=== PATIENT | female | born 1985 | race African-American/Black ===

== ENCOUNTER 2017-04-28 21:09 | Emergency (ER) | payer OTHER ==
[~2017-04-28] VITALS: Ht 165.1 cm; Wt 88.0 kg
[~2017-04-28 21:09] MED LIST: METF500T4 PO; PREN-88 PO
[2017-04-29 02:49] LABS: CLARITY URINE CLEAR (CLEAR); COLOR URINE YELLOW (YELLOW); GLUCOSE URINE NEGATIVE (NEGATIVE); KETONES URINE 3+ (NEGATIVE); LEUKOCYTE ESTERASE URINE NEGATIVE (NEGATIVE); NITRITE URINE NEGATIVE (NEGATIVE); OCCULT BLOOD URINE 3+ (NEGATIVE); PH URINE 6.5 (4.5-8.0); PROTEIN URINE TRACE (NEGATIVE); SPECIFIC GRAVITY URINE 1.025 (1.005-1.030)
[2017-04-29 03:43] LABS: PROTHROMBIN TIME 10.7 sec
[2017-04-29 03:49] LABS: BASOPHILS % 0.6 % (0.0-2.0); EOSINOPHILS % 1.8 % (0.0-5.0); HEMATOCRIT. 35.6 % (36.0-48.0); HEMOGLOBIN. 12.4 g/dL (12.0-16.0); LYMPHOCYTES % 34.7 % (20.0-50.0); MEAN CORPUSCULAR HEMOGLOBIN 25.3 pg (28.0-32.0); MEAN CORPUSCULAR VOLUME 72.5 fL (81.0-99.0); MEAN PLATELET VOLUME 8.6 fl (7.4-10.4); MONOCYTES % 6.6 % (2.0-8.0); NEUTROPHILS % 56.3 % (40.0-76.0); PLATELET 291 x1000/uL (130-400); RED BLOOD CELL COUNT 4.91 mill/uL (4.2-5.4); RED CELL DISTRIBUTION WIDTH 14.5 % (11.6-14.6)
[2017-04-29 03:59] LABS: CARBON DIOXIDE 25 mEq/L (21-32); CHLORIDE 105 mEq/L (98-107)
[2017-04-29 04:06] LABS: B-HCG QUANTITATIVE 46507 mIU/mL (<3)
[2017-04-29 06:25] VITALS: BP 103/70
[2017-05-01 19:11] LABS: CHLAMYDIA TRACHOMATIS NAA Negative (Negative); NEISSERIA GONORRHOEAE NAA Negative (Negative)
== END 2017-04-29 07:18 | disposition home or self-care (01) ==
LOC: ER 04-29 02:11
DX: O20.0 Threatened abortion (principal); F12.10 Cannabis abuse, uncomplicated; O99.321 Drug use complicating pregnancy, first trimester; Z88.0 Allergy status to penicillin; Z3A.10 10 weeks gestation of pregnancy
CPT/HCPCS: 36415; 76801; 76817; 80053; 81001; 81025; 83690; 84702; 85025; 85610; 86850; 86900; 86901; 87210; 87491; 87591; 99285; Z7610

== ENCOUNTER 2017-08-21 21:08 | Observation (INO) | payer OTHER ==
[~2017-08-21] VITALS: Ht 165.1 cm; Wt 96.2 kg
[2017-08-21] MEDS ORDERED: NITR-87 PO (21:33)
[2017-08-21] MEDS ORDERED: PANTOPRAZOLE SODIUM 40 MG/VIAL IV NR (22:00)
[2017-08-21] MEDS ORDERED: ONDANSETRON HCL 4MG/2ML VIAL IM NR (22:00)
[2017-08-21 22:54] LABS: CLARITY URINE CLEAR (CLEAR); COLOR URINE YELLOW (YELLOW); GLUCOSE URINE NEGATIVE (NEGATIVE); KETONES URINE 4+ (NEGATIVE); LEUKOCYTE ESTERASE URINE NEGATIVE (NEGATIVE); NITRITE URINE NEGATIVE (NEGATIVE); OCCULT BLOOD URINE NEGATIVE (NEGATIVE); PROTEIN URINE TRACE (NEGATIVE); SPECIFIC GRAVITY URINE 1.031 (1.005-1.030)
[2017-08-21] MEDS ORDERED: MVI, ADULT NO.1 10 ML in SODIUM CHLORIDE 0.9% 1,000 ML IV SCH ×2 (23:00)
== END 2017-08-21 23:45 | disposition home or self-care (01) ==
LOC: L&D 21:08
PROVIDERS: ADMIT Specialist; ATTEND Specialist
DX: O26.892 Other specified pregnancy related conditions, second trimester (principal); R10.9 Unspecified abdominal pain; O21.2 Late vomiting of pregnancy; Z3A.26 26 weeks gestation of pregnancy
CPT/HCPCS: 36415; 80051; 81001; 82570; 96372; 96374; 99281; C9113; G0378; J2405; J3490; J7040; 96360; J7030

== ENCOUNTER 2018-10-09 09:00 | Emergency (ER) | payer OTHER ==
[~2018-10-09] VITALS: Ht 162.6 cm; Wt 85.0 kg
[~2018-10-09 09:00] MED LIST changes: -METF500T4 PO; +NITR-87 PO
[2018-10-09] MEDS ORDERED: SODIUM CHLORIDE 0.9% 1,000 ML IV ONE (09:44)
[2018-10-09] MEDS ORDERED: KETOROLAC 30MG/ML VIAL IV STA (09:44)
[2018-10-09] MEDS ORDERED: ENALAPRIL 2.5MG TABLET PO ONE (10:00)
[2018-10-09 10:17] LABS: EOSINOPHILS % 2.4 % (0.0-5.0); HEMATOCRIT. 37.4 % (36.0-48.0); HEMOGLOBIN. 12.3 g/dL (12.0-16.0); LYMPHOCYTES % 32.3 % (20.0-50.0); MEAN CORPUSCULAR HEMOGLOBIN 24.4 pg (28.0-32.0); MEAN CORPUSCULAR VOLUME 74.5 fL (81.0-99.0); MEAN PLATELET VOLUME 8.9 fl (7.4-10.4); MONOCYTES % 7.3 % (2.0-8.0); PLATELET 253 x1000/uL (130-400); RED BLOOD CELL COUNT 5.02 mill/uL (4.2-5.4); RED CELL DISTRIBUTION WIDTH 14.8 % (11.6-14.6)
[2018-10-09 10:22] LABS: CHLORIDE 109 mEq/L (98-107)
[2018-10-09 10:31] LABS: *AMPHETAMINES SCREEN URINE NEGATIVE (NEGATIVE); *BARBITURATES SCREEN URINE NEGATIVE (NEGATIVE)
[2018-10-09 10:32] LABS: *BENZODIAZEPINES SCREEN URINE NEGATIVE (NEGATIVE); *COCAINE SCREEN URINE NEGATIVE (NEGATIVE); METHADONE URINE SCREEN NEGATIVE (NEGATIVE); OPIATES URINE SCREEN NEGATIVE (NEGATIVE); PHENCYCLIDINE URINE SCREEN NEGATIVE (NEGATIVE)
[2018-10-09 10:37] LABS: CANNABINOID URINE SCREEN PRESUMTIVE POSITIVE (NEGATIVE)
[2018-10-09 10:39] LABS: PARTIAL THROMBOPLASTIN TIME 28.2 sec (23.4-31.0)
[2018-10-09 12:54] VITALS: BP 141/90
== END 2018-10-09 13:23 | disposition home or self-care (01) ==
LOC: ER 09:00
DX: S09.8XXA Other specified injuries of head, initial encounter (principal); H53.8 Other visual disturbances; I10 Essential (primary) hypertension; J45.909 Unspecified asthma, uncomplicated; F12.10 Cannabis abuse, uncomplicated; R42 Dizziness and giddiness; Z88.0 Allergy status to penicillin; Z79.899 Other long term (current) drug therapy; X58.XXXA Exposure to other specified factors, initial encounter; Y93.89 Activity, other specified; Y92.89 Other specified places as the place of occurrence of the external cause; Y99.8 Other external cause status
CPT/HCPCS: 36415; 70450; 71045; 80048; 80305; 81025; 84484; 85025; 85610; 85730; 93005; 96360; 96361; 99284; J7030; J7040